=== PATIENT | female | born 1955 | race African-American/Black ===

== ENCOUNTER 2017-08-08 17:21 | Inpatient (IN) | payer OTHER ==
[~2017-08-08] VITALS: Ht 160 cm; Wt 61.7 kg
[2017-08-08] MEDS ORDERED: METO5AMP3 IV (17:26)
[2017-08-08 18:18] LABS: BASOPHILS % 0.6 % (0.0-2.0); EOSINOPHILS % 4.6 % (0.0-5.0); HEMATOCRIT. 39.5 % (36.0-48.0); HEMOGLOBIN. 13.2 g/dL (12.0-16.0); LYMPHOCYTES % 19.8 % (20.0-50.0); MEAN CORPUSCULAR HEMOGLOBIN 35.3 pg (28.0-32.0); MEAN CORPUSCULAR VOLUME 105.5 fL (81.0-99.0); MONOCYTES % 4.9 % (2.0-8.0); NEUTROPHILS % 70.1 % (40.0-76.0); RED BLOOD CELL COUNT 3.75 mill/uL (4.2-5.4); RED CELL DISTRIBUTION WIDTH 12.6 % (11.6-14.6)
[2017-08-08 18:23] LABS: CHLORIDE 104 mEq/L (98-107)
[2017-08-08 18:31] LABS: CARBON DIOXIDE 24 mEq/L (21-32)
[2017-08-08] MEDS ORDERED: DEXTROSE 50% WATER 50ML SYRINGE IV ONE (19:30)
[2017-08-08 19:43] LABS: CLARITY URINE CLEAR (CLEAR); COLOR URINE YELLOW (YELLOW); GLUCOSE URINE NEGATIVE (NEGATIVE); KETONES URINE NEGATIVE (NEGATIVE); LEUKOCYTE ESTERASE URINE NEGATIVE (NEGATIVE); NITRITE URINE NEGATIVE (NEGATIVE); OCCULT BLOOD URINE NEGATIVE (NEGATIVE); PROTEIN URINE 1+ (NEGATIVE); SPECIFIC GRAVITY URINE 1.014 (1.005-1.030); UROBILINOGEN URINE 0.2 E.U./dL (0.2-1.0)
[2017-08-08] MEDS ORDERED: DEXT 5%/0.45% NACL 1000ML 1,000 ML IV SCH ×2 (20:54→23:30)
[2017-08-08] MEDS ORDERED: LORAZEPAM 2MG/ML CPJ IV PRN (21:00)
[2017-08-08] MEDS ORDERED: DOCUSATE SODIUM 100MG CAPSULE PO PRN (21:00)
[2017-08-08] MEDS ORDERED: ENOXAPARIN 40MG/0.4ML SYR SUBCUT SCH ×2 (21:00→23:30)
[2017-08-08] MEDS ORDERED: NITROGLYCERIN 0.4MG TABLET SL SL PRN (21:00)
[2017-08-08] MEDS ORDERED: ACETAMINOPHEN 325MG TABLET PO PRN (21:00)
[2017-08-08] MEDS ORDERED: FAMOTIDINE 20MG/2ML VIAL IV SCH ×2 (21:00→23:30)
[2017-08-08] MEDS ORDERED: ONDANSETRON HCL 4MG/2ML VIAL IV PRN (21:00)
[2017-08-08] MEDS ORDERED: INSULIN LISPRO 100 UNITS/ML SUBCUT SCH ×2 (21:00→23:30)
[2017-08-08] MEDS ORDERED: BLOOD SUGAR DIAGNOSTIC STRIP TEST SCH ×2 (21:00→23:30)
[2017-08-08] MEDS ORDERED: MAGNESIUM/ALUMINUM HYDROXIDE/SIMETHICONE 30ML UDC PO PRN (21:00)
[2017-08-08] MEDS ORDERED: CLONIDINE 0.1MG TABLET PO PRN (21:00)
[2017-08-08] MEDS ORDERED: NA PHOS,M-B/NA PHOS,DI-BA ENEMA 118ML PR PRN (21:00)
[2017-08-08] MEDS ORDERED: DIPHENHYDRAMINE 50MG/ML VIAL IV PRN (21:00)
[2017-08-08] MEDS ORDERED: TRAMADOL 50MG TABLET PO PRN (21:00)
[2017-08-08] MEDS ORDERED: GUAIFENESIN 200MG/10ML SUGAR FREE UDC PO PRN (21:00)
[2017-08-08] MEDS ORDERED: LISINOPRIL 20MG TABLET PO SCH (21:00)
[2017-08-08] MEDS ORDERED: DEXTROSE 50% WATER 50ML SYRINGE IV PRN ×2 (21:00→23:30)
[2017-08-08] MEDS ORDERED: IPRATROPIUM/ALBUTEROL 0.5-3(2.5)MG/3ML NEB INH PRN (21:00)
[2017-08-08] MEDS ORDERED: ZOLPIDEM TARTRATE 5MG TABLET PO PRN (21:30)
[2017-08-08] MEDS ORDERED: HYDRALAZINE HCL 50MG TABLET PO SCH ×2 (22:00→23:30)
[2017-08-08 23:30] VITALS: BP 159/81
[2017-08-09] MEDS ORDERED: HYDR-519 PO (00:22)
[2017-08-09] MEDS ORDERED: HYDR25TA PO (00:22)
[2017-08-09] MEDS ORDERED: INSU100I7 SQ (00:22)
[2017-08-09] MEDS ORDERED: METO-396 PO (00:22)
[2017-08-09] MEDS ORDERED: GABA100C PO (00:22)
[2017-08-09] MEDS ORDERED: ASPI-1158 PO (00:22)
[2017-08-09] MEDS ORDERED: ATOR10TA PO (00:22)
[2017-08-09] MEDS ORDERED: VENL150C2 PO (00:22)
[2017-08-09] MEDS ORDERED: NPH,100I SQ ×4 (00:22→11:32)
[2017-08-09] MEDS ORDERED: TRAZ-129 PO (00:22)
[2017-08-09] MEDS ORDERED: LOSA100T3 PO (00:22)
[2017-08-09] MEDS ORDERED: HYDR-4133 PO (00:22)
[2017-08-09] MEDS ORDERED: CITA20TA19 PO (00:22)
[2017-08-09 00:54] LABS: CREATINE KINASE 143 IU/L (26-192); TROPONIN I < 0.02 ng/mL (0.00-0.04)
[2017-08-09 00:55] LABS: CREATINE KINASE MB FRACTION 2.9 ng/mL (0.5-3.6)
[2017-08-09] MEDS ORDERED: ZOLPIDEM TARTRATE 5MG TABLET PO PRN (01:00)
[2017-08-09 02:21] LABS: *AMPHETAMINES SCREEN URINE NEGATIVE (NEGATIVE); *BARBITURATES SCREEN URINE NEGATIVE (NEGATIVE); *BENZODIAZEPINES SCREEN URINE NEGATIVE (NEGATIVE); *COCAINE SCREEN URINE PRESUMTIVE POSITIVE (NEGATIVE); CANNABINOID URINE SCREEN NEGATIVE (NEGATIVE); METHADONE URINE SCREEN NEGATIVE (NEGATIVE); OPIATES URINE SCREEN PRESUMTIVE POSITIVE (NEGATIVE); PHENCYCLIDINE URINE SCREEN NEGATIVE (NEGATIVE)
[2017-08-09 03:41] LABS: FOLIC ACID (FOLATE) SERUM 14.8 ng/mL (>5.38)
[2017-08-09 04:00] VITALS: BP 139/53
[2017-08-09] MEDS ORDERED: ENOXAPARIN 30MG/0.3ML SYR SUBCUT SCH (09:00)
[2017-08-09] MEDS ORDERED: ASPIRIN 325MG EC TABLET PO SCH (09:00)
[2017-08-09] MEDS ORDERED: FAMOTIDINE 20MG/2ML VIAL IV SCH (09:00)
[2017-08-09 09:22] LABS: BASOPHILS % 0.9 % (0.0-2.0); EOSINOPHILS % 4.8 % (0.0-5.0); HEMOGLOBIN. 12.5 g/dL (12.0-16.0); LYMPHOCYTES % 26.7 % (20.0-50.0); MEAN CORPUSCULAR HEMOGLOBIN 35.2 pg (28.0-32.0); MEAN CORPUSCULAR VOLUME 104.2 fL (81.0-99.0); MEAN PLATELET VOLUME 7.7 fl (7.4-10.4); MONOCYTES % 4.7 % (2.0-8.0); NEUTROPHILS % 62.9 % (40.0-76.0); PLATELET 307 x1000/uL (130-400); RED BLOOD CELL COUNT 3.55 mill/uL (4.2-5.4); RED CELL DISTRIBUTION WIDTH 12.5 % (11.6-14.6)
[2017-08-09 09:39] LABS: CARBON DIOXIDE 31 mEq/L (21-32); CHLORIDE 102 mEq/L (98-107)
[2017-08-09 11:33] VITALS: BP 134/53
== END 2017-08-09 11:55 | disposition home or self-care (01) | DRG 637 ==
LOC: ER 18:17 → 5WST 20:08 → EDBEDREQ 20:11 → EDBEDREQTM 20:11 → ENRESERV 20:17 → SUPCPDRO 20:53 → ER 23:15
PROVIDERS: ADMIT Internal Medicine; ATTEND Internal Medicine
DX: E11.649 Type 2 diabetes mellitus with hypoglycemia without coma (principal); G93.40 Encephalopathy, unspecified; N17.9 Acute kidney failure, unspecified; D72.829 Elevated white blood cell count, unspecified; I10 Essential (primary) hypertension; Z88.8 Allergy status to other drugs, medicaments and biological substances
CPT/HCPCS: 36415; 71010; 80053; 80061; 80305; 81001; 82550; 82553; 82607; 82746; 82962; 83036; 84484; 85025; 93005; 99285; J1650; J1815; J3490